=== PATIENT | female | born 1980 | race Two or more races ===

== ENCOUNTER 2017-02-05 21:34 | Emergency (ER) | payer MEDICAID ==
[2017-02-05 23:32] VITALS: BP 164/95
== END 2017-02-05 23:32 | disposition home or self-care (01) ==
LOC: ED 21:34
DX: L50.9 Urticaria, unspecified (principal); T78.49XA Other allergy, initial encounter; I10 Essential (primary) hypertension
CPT/HCPCS: J1200; J2930; J3490; J7030